=== PATIENT | female | born 1970 | race Caucasian/White ===

== ENCOUNTER 2018-01-25 08:12 | Emergency (ER) | payer OTHER ==
[~2018-01-25] VITALS: Ht 175.3 cm; Wt 108.9 kg
[~2018-01-25 08:12] MED LIST: ALBU90OI INH; ALPR.5 PO; FERSU220EL PO; FLUO10 PO; GABA300 PO; HYDHCL25 PO; IBUP600 PO; IBUP800 PO; MEDR10 PO; Norco 10-325 T1 EACH PO; OXYACE5T PO; PARO10 PO; PRAZ1 PO; Prednisone20 MG PO; Prinivil10 MG PO; QVAR7.3 G1 IH; SERT100 PO; Zithromax250 MG PO; Zofran8 MG PO; Zoloft100 MG PO
[2018-01-25] MEDS ORDERED: Percocet 5-3251 EACH PO (09:39)
[2018-01-25] MEDS ORDERED: NAPR550 PO (09:39)
[2018-01-25] MEDS ORDERED: CEPH500 PO (09:39)
[2018-09-30] MEDS ORDERED: Flovent 44 mc10.6 GM INH (15:59)
[2018-09-30] MEDS ORDERED: ATOR20 PO (16:00)
[2018-09-30] MEDS ORDERED: ONDA4ODT MM (16:01)
[2018-09-30] MEDS ORDERED: MULTIVITAMIN W1 EACH PO (16:01)
[2018-09-30] MEDS ORDERED: Flonase 0.05% N16 GM (16:01)
[2018-09-30] MEDS ORDERED: MEDR10 PO (16:02)
[2018-09-30] MEDS ORDERED: Aspir 8181 MG PO (16:02)
[2018-09-30] MEDS ORDERED: LOSA25 PO (16:02)
[2018-09-30] MEDS ORDERED: Patanol5 ML BOTHEYES (16:03)
[2018-09-30] MEDS ORDERED: ALPR.25 PO (16:04)
[2018-09-30] MEDS ORDERED: Hydrochlorothia25 MG PO (16:05)
[2018-09-30] MEDS ORDERED: SULFATRIM 800-120 ML PO (16:07)
[2018-09-30] MEDS ORDERED: MUPI1NAS (16:08)
[2018-09-30] MEDS ORDERED: Augmentin 875-1 EACH PO (16:13)
[2018-10-03] MEDS ORDERED: SERT100 PO (08:39)
[2018-10-09] MEDS ORDERED: ESTR2 PO (12:59)
[2018-10-09] MEDS ORDERED: IBUP800 PO (13:00)
[2018-10-09] MEDS ORDERED: Percocet 10-321 EACH PO (13:00)
[2018-10-09] MEDS ORDERED: GAVILAX17 GM PO (13:01)
[2018-10-16] MEDS ORDERED: CEPH500 PO (13:16)
[2018-10-16] MEDS ORDERED: Percocet 10-321 EACH PO (13:16)
== END 2018-01-25 10:00 | disposition home or self-care (01) ==
LOC: ER 08:12
DX: N61.0 Mastitis without abscess (principal); J45.909 Unspecified asthma, uncomplicated; F41.9 Anxiety disorder, unspecified; Z79.899 Other long term (current) drug therapy
CPT/HCPCS: 76642; 96372; 99284; J2550

== ENCOUNTER → 2018-11-08 | Outpatient (CLI) | payer OTHER ==
[~2018-11-08] MED LIST changes: +ALPR.25 PO; +ATOR20 PO; +Aspir 8181 MG PO; +Augmentin 875-1 EACH PO; +CEPH500 PO; +ESTR2 PO; +Flonase 0.05% N16 GM; +Flovent 44 mc10.6 GM INH; +GAVILAX17 GM PO; +Hydrochlorothia25 MG PO; +LOSA25 PO; +MULTIVITAMIN W1 EACH PO; +MUPI1NAS; +NAPR550 PO; +ONDA4ODT MM; +Patanol5 ML BOTHEYES; +Percocet 10-321 EACH PO; +Percocet 5-3251 EACH PO; +SULFATRIM 800-120 ML PO
[2018-11-08 13:49] LABS: Bilirubin, Urine Neg (Neg); Blood, Urine 1+ (Neg); Glucose Qualitative, Urine Neg (Neg); Ketones, Urine Neg (Neg); Leukocyte Esterase, Urine 3+ (Neg); Nitrite, Urine Neg (Neg); Protein, Urine 2+ (Neg); Specific Gravity, Urine 1.015 (1.003-1.022); Urobilinogen, Urine NORM (Normal); pH, Urine 6.5 (5.0-8.0)
[2018-11-08 14:10] LABS: Appearance, Urine Clear (Clear); Color, Urine Yellow (P-Yellow)
[2018-11-08 14:11] LABS: Bacteria Mod /hpf; Hyaline Casts 0-2 /lpf (0-2)
[2018-11-08 14:12] LABS: Squamous Epithelial Cells Mod /hpf (Few)
== END | disposition home or self-care (01) ==
LOC: LAB 13:34 → LAB SHORT 13:34
PROVIDERS: Obstetrics & Gynecology
DX: N76.0 Acute vaginitis (principal); R39.9 Unspecified symptoms and signs involving the genitourinary system
CPT/HCPCS: 81001; 87070; 87086; 87205

== ENCOUNTER → 2018-11-20 | Outpatient (CLI) | payer OTHER ==
[2018-11-20 13:45] LABS: Source, Urine Clean Catch
[2018-11-20 18:07] LABS: Appearance, Urine Hazy (Clear); Bilirubin, Urine Neg (Neg); Blood, Urine 1+ (Neg); Color, Urine Yellow (P-Yellow); Glucose Qualitative, Urine Neg (Neg); Ketones, Urine Neg (Neg); Leukocyte Esterase, Urine 1+ (Neg); Nitrite, Urine Pos (Neg); Protein, Urine Neg (Neg); Urobilinogen, Urine NORM (Normal)
[2018-11-20 18:38] LABS: Bacteria Many /hpf; Squamous Epithelial Cells Many /hpf (Few)
== END | disposition home or self-care (01) ==
LOC: LAB 11:21 → LAB SHORT 11:21
PROVIDERS: Obstetrics & Gynecology
DX: N76.0 Acute vaginitis (principal); R39.9 Unspecified symptoms and signs involving the genitourinary system
CPT/HCPCS: 81001; 87070; 87086; 87205

== ENCOUNTER → 2018-12-11 | Outpatient (CLI) | payer OTHER ==
[2018-12-11 16:58] LABS: Source, Urine Clean Catch
[2018-12-11 18:10] LABS: Bilirubin, Urine Neg (Neg); Blood, Urine 1+ (Neg); Glucose Qualitative, Urine Neg (Neg); Ketones, Urine Neg (Neg); Leukocyte Esterase, Urine Neg (Neg); Nitrite, Urine Neg (Neg); Protein, Urine Neg (Neg); Urobilinogen, Urine NORM (Normal)
[2018-12-11 18:50] LABS: Appearance, Urine Hazy (Clear); Color, Urine Yellow (P-Yellow)
[2018-12-11 18:51] LABS: Bacteria Many /hpf; Red Blood Cells, Urine 0-2 /hpf (0-2); Squamous Epithelial Cells Many /hpf (Few); White Blood Cells, Urine 0-2 /hpf (0-5)
== END | disposition home or self-care (01) ==
LOC: LAB 16:56 → LAB SHORT 16:56
PROVIDERS: Obstetrics & Gynecology
DX: R35.0 Frequency of micturition (principal)
CPT/HCPCS: 81001; 87086

== ENCOUNTER 2019-05-27 09:25 | Emergency (ER) | payer OTHER ==
[~2019-05-27] VITALS: Ht 170.2 cm; Wt 108.9 kg
[2019-05-27] MEDS ORDERED: CEPH500 PO (10:06)
[2019-05-27] MEDS ORDERED: ONDA4ODT MM (10:58)
== END 2019-05-27 10:11 | disposition home or self-care (01) ==
LOC: ER 09:25
DX: L03.113 Cellulitis of right upper limb (principal); Z79.899 Other long term (current) drug therapy; J45.909 Unspecified asthma, uncomplicated; F41.9 Anxiety disorder, unspecified; I10 Essential (primary) hypertension; E78.00 Pure hypercholesterolemia, unspecified; Z87.891 Personal history of nicotine dependence
CPT/HCPCS: 99282

== ENCOUNTER 2020-07-19 11:37 | Emergency (ER) | payer OTHER ==
[~2020-07-19] VITALS: Ht 175.3 cm; Wt 108.9 kg
[~2020-07-19 11:37] MED LIST changes: +ALBU3IS INH; +ALBU90OI; +CONEST1.25 PO; +CYCL10 PO; +EFFEXOR XR150 MG PO; +EPINEPHRIN0.3 MG/0.1; +EPIPEN 2-P0.3 MG/0.1 IM; -ESTR2 PO; +ESTRADIOL2 MG PO; +GABA800 PO; +HYDPAM25 PO; +HYDROXYZINE PAM25 MG PO; +METO50 PO; +Norco 5-325 Ta1 EACH PO; +Prometrium200 MG PO; +VENL150ER PO
[2020-07-19] MEDS ORDERED: NAPR500 PO (12:18)
[2020-07-19] MEDS ORDERED: ALOCANE EMERGEN75 ML TOP (12:18)
== END 2020-07-19 12:22 | disposition home or self-care (01) ==
LOC: ER 11:37
DX: T22.112A Burn of first degree of left forearm, initial encounter (principal); J45.909 Unspecified asthma, uncomplicated; F41.9 Anxiety disorder, unspecified; Z87.891 Personal history of nicotine dependence; Z79.3 Long term (current) use of hormonal contraceptives; Z79.899 Other long term (current) drug therapy; X10.0XXA Contact with hot drinks, initial encounter
CPT/HCPCS: 99283

== ENCOUNTER 2020-09-16 12:27 | Day surgery (SDC) | payer OTHER ==
[~2020-09-16] VITALS: Ht 170.2 cm; Wt 117.7 kg
[~2020-09-16 12:27] MED LIST changes: +ALBU8HFA2 INH; +ALOCANE EMERGEN75 ML TOP; +CLON.5 PO; +HYDCHL25 PO; +NAPR500 PO
--- NOTE | 2020-09-16 13:31 | NUR ---
09/16/20 1330 Alfredo Arzola 1ST IV ATTEMPT IN LEFT HAND VEIN BLEW, 2ND IV ATTEMPT IN LEFT HAND VEIN BLEW, 3RD AND 4TH IV ATTEMPT IN RIGHT FOREARM VEIN ALEEED-[facility]
--- NOTE | 2020-09-16 16:02 | NUR ---
09/16/20 1602 Theresa Small PATIENT C/O PAIN IN ABDOMEN THAT WAS CRAMPING IN NATURE THAT SHE RATES 05/28. PATIENT WAS ABLE TO PASS AIR AND VERBALIZED THAT SHE WAS FEELING BETTER WHEN TIME FOR DISCHARGE. I EMPHASIZED TO THE PATIENT THAT IF THE PAIN GOT WORSE OR DID NOT GO AWAY TO BE SURE AND CALL DR ANDERS. PATIENT STATED IT WAS FEELING BETTER BUT SHE AND HER DAUGHTER VERBALIZED UNDERSTANDING. PATIENT WAS DISCHARGED IN STABLE CONDITION
== END 2020-09-16 15:50 | disposition home or self-care (01) ==
LOC: ORSCSDS 12:27
PROVIDERS: Internal Medicine Gastroenterology
PROC: 0DBM8ZX Excision of Descending Colon, Via Natural or Artificial Opening Endoscopic, Diagnostic (ICD-10-PCS; principal; 2020-09-16 14:30)
PROC: 0DBN8ZX Excision of Sigmoid Colon, Via Natural or Artificial Opening Endoscopic, Diagnostic (ICD-10-PCS; principal; 2020-09-16 14:30)
DX: Z12.11 Encounter for screening for malignant neoplasm of colon (principal); D12.4 Benign neoplasm of descending colon; D12.5 Benign neoplasm of sigmoid colon; K57.30 Diverticulosis of large intestine without perforation or abscess without bleeding; K64.8 Other hemorrhoids; I10 Essential (primary) hypertension; J45.909 Unspecified asthma, uncomplicated; E66.01 Morbid (severe) obesity due to excess calories
CPT/HCPCS: 88305; J2704; J7120

== ENCOUNTER → 2021-02-28 | Outpatient (CLI) | payer OTHER ==
[2021-02-28 15:09] LABS: BASOPHILS ABSOLUTE AUTO 0.05 K/mm3 (0.00-0.23); BASOPHILS PERCENT AUTO 1 % (0-2); EOSINOPHILS ABSOLUTE AUTO 0.67 K/mm3 (0.00-0.68); EOSINOPHILS PERCENT AUTO 7 % (0-6); Hematocrit 43.3 % (33.0-51.0); Hemoglobin 14.2 g/dL (11.5-16.0); IMMATURE GRAN ABSOLUTE AUTO 0.04 K/mm3 (0.00-0.10); IMMATURE GRAN PERCENT AUTO 0 % (0-1); LYMPHOCYTES ABSOLUTE AUTO 1.63 K/mm3 (0.84-5.20); LYMPHOCYTES PERCENT AUTO 18 % (21-46); MONOCYTES ABSOLUTE AUTO 0.51 K/mm3 (0.16-1.47); MONOCYTES PERCENT AUTO 6 % (4-13); Mean Corpuscular HGB 28.7 pg (26.0-34.0); Mean Corpuscular HGB Conc 32.8 g/dL (31.5-36.5); Mean Corpuscular Volume 88 fL (80-100); Mean Platelet Volume 9.5 fL (9.1-12.4); NEUTROPHILS ABSOLUTE AUTO 6.41 K/mm3 (1.96-9.15); NEUTROPHILS PERCENT AUTO 69 % (41-73); Platelet Count 454 K/mm3 (150-400); RDW Coefficient Variation 13.9 % (11.7-14.2); RDW Standard Deviation 44.5 fL (35.1-46.3); Red Blood Cell Count 4.94 M/mm3 (3.80-5.20); White Blood Cell Count 9.31 K/mm3 (4.00-11.30)
[2021-02-28 15:21] LABS: Anion Gap 11 mmol/L (6-16); Blood Urea Nitrogen 9 mg/dL (8-24); CO2, Blood 28 mmol/L (21-32); Calcium, Blood 9.4 mg/dL (8.5-10.1); Chloride, Blood 99 mmol/L (98-108); Creatinine, Blood 1.13 mg/dL (0.40-1.00); Glomerular Filtration Rate 51 (60-); Glucose, Blood 114 mg/dL (70-99); Sodium, Blood 138 mmol/L (136-145); Troponin I <0.017 ng/mL (0.000-0.040)
== END | disposition home or self-care (01) ==
LOC: LAB SHORT 15:03 → LAB EV 15:03
PROVIDERS: Chiropractor
DX: R06.00 Dyspnea, unspecified (principal); R07.89 Other chest pain
CPT/HCPCS: 80048; 83880; 84484; 85025; 85379

== ENCOUNTER 2021-08-12 21:31 | Emergency (ER) | payer OTHER ==
[~2021-08-12] VITALS: Ht 170.2 cm; Wt 117.9 kg
== END 2021-08-12 23:46 | disposition home or self-care (01) ==
LOC: ER 21:31
DX: S90.32XA Contusion of left foot, initial encounter (principal); J45.909 Unspecified asthma, uncomplicated; Z79.899 Other long term (current) drug therapy; Z87.891 Personal history of nicotine dependence; W22.8XXA Striking against or struck by other objects, initial encounter
CPT/HCPCS: 73630; 96372; 99283-25; J1885

== ENCOUNTER 2022-03-01 03:10 | Emergency (ER) | payer OTHER ==
[~2022-03-01] VITALS: Ht 170.2 cm; Wt 113.4 kg
[2022-03-01 04:28] LABS: BASOPHILS ABSOLUTE AUTO 0.06 K/mm3 (0.00-0.23); BASOPHILS PERCENT AUTO 1 % (0-2); EOSINOPHILS ABSOLUTE AUTO 0.32 K/mm3 (0.00-0.68); EOSINOPHILS PERCENT AUTO 4 % (0-6); Hematocrit 43.4 % (33.0-51.0); Hemoglobin 13.8 g/dL (11.5-16.0); IMMATURE GRAN ABSOLUTE AUTO 0.06 K/mm3 (0.00-0.10); IMMATURE GRAN PERCENT AUTO 1 % (0-1); LYMPHOCYTES ABSOLUTE AUTO 2.51 K/mm3 (0.84-5.20); LYMPHOCYTES PERCENT AUTO 28 % (21-46); MONOCYTES ABSOLUTE AUTO 0.61 K/mm3 (0.16-1.47); MONOCYTES PERCENT AUTO 7 % (4-13); Mean Corpuscular HGB 28.3 pg (26.0-34.0); Mean Corpuscular HGB Conc 31.8 g/dL (31.5-36.5); Mean Corpuscular Volume 89 fL (80-100); Mean Platelet Volume 9.9 fL (9.1-12.4); NEUTROPHILS ABSOLUTE AUTO 5.34 K/mm3 (1.96-9.15); NEUTROPHILS PERCENT AUTO 60 % (41-73); Platelet Count 438 K/mm3 (150-400); RDW Coefficient Variation 14.6 % (11.7-14.2); RDW Standard Deviation 48.5 fL (35.1-46.3); Red Blood Cell Count 4.87 M/mm3 (3.80-5.20)
[2022-03-01 04:39] LABS: Albumin, Blood 3.8 g/dL (3.4-5.0); Bilirubin, Total 0.2 mg/dL (0.1-1.0); Bun/Creatinine Ratio 12.3 (12.0-20.0); Calcium, Blood 9.1 mg/dL (8.5-10.1); Creatinine, Blood 1.22 mg/dL (0.40-1.00); Globulin, Blood 3.9 g/dL (2.2-4.0); Potassium, Blood 3.6 mmol/L (3.5-5.5); Total Protein, Blood 7.7 g/dL (6.4-8.2)
[2022-03-01 05:21] LABS: Influenza A, PCR NEGATIVE (NEGATIVE); Influenza B, PCR NEGATIVE (NEGATIVE); Resp Syncytial Virus, PCR NEGATIVE (NEGATIVE); SARS-Cov-2 (COVID-19) PCR, MMC NEGATIVE (NEGATIVE)
[2022-03-01] MEDS ORDERED: ALBU90OI INH (05:44)
[2022-03-01] MEDS ORDERED: IBU600 MG PO (05:44)
== END 2022-03-01 07:53 | disposition home or self-care (01) ==
LOC: ER 03:10
PROVIDERS: Emergency Medicine
DX: B34.9 Viral infection, unspecified (principal); Z20.822 Contact with and (suspected) exposure to COVID-19; J44.9 Chronic obstructive pulmonary disease, unspecified; Z79.899 Other long term (current) drug therapy; Z87.891 Personal history of nicotine dependence
CPT/HCPCS: 0241U; 71045; 80053; 83605; 84484; 85025; 86308; 93005; 93010; 94640; 94664; 96374; 99283-25; J1885; J7030

== ENCOUNTER 2022-03-01 11:31 | Emergency (ER) | payer OTHER ==
[~2022-03-01] VITALS: Ht 170.2 cm; Wt 52.0 kg
[~2022-03-01 11:31] MED LIST changes: +IBU600 MG PO
== END 2022-03-01 13:54 | disposition home or self-care (01) ==
LOC: ER 11:31
DX: R91.1 Solitary pulmonary nodule (principal); Z87.891 Personal history of nicotine dependence
CPT/HCPCS: 71260; 99282-25; Q9967

== ENCOUNTER → 2022-04-10 | Outpatient (CLI) | payer OTHER | END | disposition home or self-care (01) | LOC: LAB SHORT 17:40 | DX: G62.9 Polyneuropathy, unspecified (principal) | CPT/HCPCS: 83036 ==

== ENCOUNTER → 2022-11-08 | Outpatient (CLI) | payer OTHER ==
[2022-11-08 14:40] LABS: Source, Urine Clean Catch
[2022-11-08 17:31] LABS: Appearance, Urine Hazy (Clear); Bilirubin, Urine Neg (Neg); Blood, Urine 1+ (Neg); Color, Urine Yellow (P-Yellow); Glucose Qualitative, Urine Neg (Neg); Ketones, Urine Neg (Neg); Leukocyte Esterase, Urine Neg (Neg); Nitrite, Urine Neg (Neg); Protein, Urine 1+ (Neg); Specific Gravity, Urine 1.015 (1.003-1.022); Urobilinogen, Urine NORM (Normal)
[2022-11-08 17:47] LABS: Bacteria Many /hpf; Red Blood Cells, Urine 0-2 /hpf (0-2); Squamous Epithelial Cells Mod /hpf (Few)
== END | disposition home or self-care (01) ==
LOC: LAB SHORT 14:39 → LAB 14:39
PROVIDERS: Obstetrics & Gynecology
DX: N39.3 Stress incontinence (female) (male) (principal)
CPT/HCPCS: 81001; 87086

== ENCOUNTER 2022-12-08 10:00 | Day surgery (SDC) | payer OTHER ==
[~2022-12-08] VITALS: Ht 175.3 cm; Wt 111.6 kg
[2022-12-08] MEDS ORDERED: HYDCHL25 PO (10:36)
--- NOTE | 2022-12-08 10:59 | NUR ---
12/08/22 Arabella Sher 20 GAUGE LUKAS BLOCK PLACED TO L HAND PER DR ACOSTA, FLUSHED WITH 10 CC NORMAL SALINE
[2022-12-12] MEDS ORDERED: CLON.5 PO (10:02)
[2022-12-12] MEDS ORDERED: FLUT1DIS5 INH (10:03)
[2022-12-12] MEDS ORDERED: HYDCHL25 PO (10:04)
[2022-12-12] MEDS ORDERED: HYDPAM25 PO (10:05)
== END 2022-12-08 13:45 | disposition home or self-care (01) ==
LOC: ORSCSDS 10:00
PROVIDERS: Orthopaedic Surgery
PROC: 01N50ZZ Release Median Nerve, Open Approach (ICD-10-PCS; principal; 2022-12-08 11:45)
DX: G56.02 Carpal tunnel syndrome, left upper limb (principal); I10 Essential (primary) hypertension; J45.909 Unspecified asthma, uncomplicated; G47.33 Obstructive sleep apnea (adult) (pediatric); F32.A Depression, unspecified; E66.9 Obesity, unspecified; Z68.36 Body mass index [BMI] 36.0-36.9, adult; Z79.899 Other long term (current) drug therapy
CPT/HCPCS: A9270; J0690; J1885; J2250; J2405; J2704; J3010; J7120

== ENCOUNTER 2022-12-20 06:16 | Day surgery (SDC) | payer OTHER ==
[~2022-12-20] VITALS: Ht 175.3 cm; Wt 111.1 kg
[~2022-12-20 06:16] MED LIST changes: +FLUT1DIS5 INH
--- NOTE | 2022-12-20 07:17 | NUR ---
Ambulatory in Day Surgery. History, Chart, Medications and Allergies reviewed before start of procedure. Lungs clear T/O to Auscultation. Patient confirms NPO status and agrees with scheduled surgery. Pre-Op teaching done. Pt verbalizes understanding. Patient States Post-Procedure ride home has been arranged WITH [facility].
--- NOTE | 2022-12-20 10:09 | NUR ---
Patient up to Ambulate independently. Gait steady. Discharge instructions reviewed with patient. Patient verbalizes understanding. Copy given to patient to take home. Discharged via wheelchair to private car for ride home.
== END 2022-12-20 23:33 | disposition home or self-care (01) ==
LOC: ORSCMMR 06:16 → ORD 07:30 → ORSCMMR 23:33
PROVIDERS: Obstetrics & Gynecology
PROC: 0TSD0ZZ Reposition Urethra, Open Approach (ICD-10-PCS; principal; 2022-12-20 07:30)
PROC: 0JQC0ZZ Repair Pelvic Region Subcutaneous Tissue and Fascia, Open Approach (ICD-10-PCS; principal; 2022-12-20 07:30)
DX: N39.3 Stress incontinence (female) (male) (principal); N81.10 Cystocele, unspecified; I10 Essential (primary) hypertension; J44.9 Chronic obstructive pulmonary disease, unspecified; Z79.899 Other long term (current) drug therapy; E66.9 Obesity, unspecified; Z68.36 Body mass index [BMI] 36.0-36.9, adult
CPT/HCPCS: J1100; J1885; J1956; J2250; J2405; J2704; J3010; J7120

== ENCOUNTER → 2023-01-03 | Outpatient (CLI) | payer OTHER ==
[2023-01-03 14:52] LABS: Candida species (DNA Probe) Positive (NEGATIVE); G. vaginalis (DNA Probe) Positive (NEGATIVE); T. vaginalis (DNA Probe) Negative (NEGATIVE)
== END | disposition home or self-care (01) ==
LOC: LAB 11:50 → LAB SHORT 11:50
PROVIDERS: Obstetrics & Gynecology
DX: N89.8 Other specified noninflammatory disorders of vagina (principal)
CPT/HCPCS: 87480; 87510; 87660

== ENCOUNTER 2023-03-02 10:48 | Day surgery (SDC) | payer OTHER ==
[~2023-03-02] VITALS: Ht 172.7 cm; Wt 110.1 kg
[2023-03-02] MEDS ORDERED: CONEST1.25 PO (11:28)
--- NOTE | 2023-03-02 12:57 | NUR ---
03/02/23 1257 Devan Maier BLOCK COMPLETE IN OR BY DR MOREL, SITE CHECK COMPLETE, PT TOW, VSS.
[2023-03-02 13:23] VITALS: BP 140/86
--- NOTE | 2023-03-02 14:31 | NUR ---
03/02/23 1431 Jasson Shaw PT REPORTED NO PAIN UPON ARRIVAL IN STEP DOWN. AFTER IV REMOVED , SHE REPORTED 8/10 PAIN WITH FLACC SCALE 0-2/10. SHE WAS MEDICATED WITH PERCOCETT, PER DR. ACOSTA ORDERS. DURING TIME IN STEP DOWN PT WAS FREQUENTLY SMILING, LAUGHING, AND MOVING SURGICAL ARM. SHE WAS ABLE TO DRESS WITHOUT DIFFICULTY. PT APPEARED CALM AND RELAXED AT TIME OF DISCHARGE. SHE EXPRESSED EAGERNESS TO RETURN HOME. PT DENIED NAUSEA.
== END 2023-03-02 14:15 | disposition home or self-care (01) ==
LOC: ORSCSDS 10:48
PROVIDERS: Orthopaedic Surgery
PROC: 01N50ZZ Release Median Nerve, Open Approach (ICD-10-PCS; principal; 2023-03-02 12:30)
DX: G56.01 Carpal tunnel syndrome, right upper limb (principal); I10 Essential (primary) hypertension; J44.9 Chronic obstructive pulmonary disease, unspecified; Z87.891 Personal history of nicotine dependence; Z79.899 Other long term (current) drug therapy; F32.A Depression, unspecified; E66.01 Morbid (severe) obesity due to excess calories; Z68.36 Body mass index [BMI] 36.0-36.9, adult
CPT/HCPCS: A9270; J0690; J1885; J2001; J2250

== ENCOUNTER 2025-08-13 12:51 | Inpatient (IN) | payer OTHER ==
[~2025-08-13] VITALS: Ht 172.7 cm; Wt 105.1 kg
[~2025-08-13 12:51] MED LIST changes: -AMLODIPINE BESY10 MG PO; -CAPLYTA42 MG PO; -CEFD300 PO; +Enoxaparin 30 MG/0.3 ML SYR SC SCH; -KLOR-CON 1010 ME9 PO; -LYLLANA TD; -Oxybutynin Chlo10 MG PO; -PREGABALIN100 MG PO; -ROSUVASTATIN CA40 MG PO; -SPIRONOLACTONE50 MG PO; -VENLAFAXINE HC225 MG PO
[2025-08-13] MEDS ORDERED: NS 1,000 ML IV SCH ×2 (13:05→18:05)
[2025-08-13] MEDS ORDERED: CefTRIAXone Sodium 1,000 MG in NS 100 ML IV ONE (18:05)
[2025-08-13] MEDS ORDERED: FentaNYL Citrate 50 MCG/ML 2 ML Injection IV PRN (18:05)
[2025-08-13] MEDS ORDERED: Ondansetron HCl 2 MG / ML 2ML Vial IV ONE (18:05)
[2025-08-13] MEDS ORDERED: Oxybutynin Chlo10 MG PO (18:44)
[2025-08-13] MEDS ORDERED: AMLODIPINE BESY10 MG PO (18:44)
[2025-08-13] MEDS ORDERED: CAPLYTA42 MG PO (18:44)
[2025-08-13] MEDS ORDERED: HYDCHL25 PO (18:45)
[2025-08-13] MEDS ORDERED: KLOR-CON 1010 ME9 PO (18:45)
[2025-08-13] MEDS ORDERED: VENLAFAXINE HC225 MG PO (18:45)
[2025-08-13] MEDS ORDERED: CYCL10 PO (18:45)
[2025-08-13] MEDS ORDERED: ROSUVASTATIN CA40 MG PO (18:46)
[2025-08-13] MEDS ORDERED: SPIRONOLACTONE50 MG PO (18:46)
[2025-08-13] MEDS ORDERED: PREGABALIN100 MG PO (18:46)
[2025-08-13] MEDS ORDERED: LYLLANA TD (18:46)
[2025-08-13 20:00] LABS: Source, Urine Clean Catch
[2025-08-13 20:02] LABS: Bilirubin, Urine Neg (Neg); Glucose Qualitative, Urine Neg (Neg); Ketones, Urine Neg (Neg); Leukocyte Esterase, Urine Neg (Neg); Protein, Urine 2+ (Neg); Specific Gravity, Urine 1.005 (1.003-1.022); Urobilinogen, Urine NORM (Normal)
[2025-08-13 20:08] LABS: Color, Urine Pale Yellow (P-Yellow)
[2025-08-13 20:10] LABS: Red Blood Cells, Urine 0-2 /hpf (0-2)
[2025-08-13] MEDS ORDERED: Ondansetron HCl 2 MG / ML 2ML Vial IV PRN (23:20)
[2025-08-13] MEDS ORDERED: FLU VACC TS2025-26(6MOS UP)/PF 45 MCG/0.5 ML SYRINGE IM ONE (23:20)
[2025-08-13] MEDS ORDERED: NS 1,000 ML IV ONE (23:20)
[2025-08-13] MEDS ORDERED: Enoxaparin 40 MG/0.4 ML SYR SC SCH (23:31)
[2025-08-14] VITALS (7 sets, daily range): BP systolic 126–139; BP diastolic 57–90
[2025-08-14] MEDS ORDERED: Misc. Capsule PO SCH ×2 (09:00→21:00)
[2025-08-14 09:20] LABS: BASOPHILS ABSOLUTE AUTO 0.09 K/mm3 (0.00-0.23); BASOPHILS PERCENT AUTO 1 % (0-2); EOSINOPHILS ABSOLUTE AUTO 0.50 K/mm3 (0.00-0.68); EOSINOPHILS PERCENT AUTO 5 % (0-6); IMMATURE GRAN ABSOLUTE AUTO 0.30 K/mm3 (0.00-0.10); IMMATURE GRAN PERCENT AUTO 3 % (0-1); LYMPHOCYTES ABSOLUTE AUTO 2.48 K/mm3 (0.84-5.20); LYMPHOCYTES PERCENT AUTO 23 % (21-46); MONOCYTES ABSOLUTE AUTO 0.39 K/mm3 (0.16-1.47); MONOCYTES PERCENT AUTO 4 % (4-13); NEUTROPHILS ABSOLUTE AUTO 7.13 K/mm3 (1.96-9.15); NEUTROPHILS PERCENT AUTO 65 % (41-73)
[2025-08-14 09:22] LABS: NRBC ABSOLUTE 0.00 K/mm3 (0.00-0.02); NRBC Auto 0.0 /100 WBC (0.0-0.2)
[2025-08-14 09:26] LABS: Hematocrit 40.7 % (33.0-51.0); Hemoglobin 13.6 g/dL (11.5-16.0); Mean Corpuscular HGB Conc 33.4 g/dL (31.5-36.5); Mean Corpuscular Volume 86 fL (80-100); Platelet Count 548 K/mm3 (150-400); RDW Coefficient Variation 16.5 % (11.7-14.2); RDW Standard Deviation 52.4 fL (35.1-46.3)
[2025-08-14 09:50] LABS: Alanine Aminotransfer (ALT/SGP 105.0 U/L (12-78); Albumin, Blood 3.0 g/dL (3.4-5.0); Albumin/Globulin Ratio 0.6 (0.8-1.8); Anion Gap 9.0 mmol/L (3-11); Aspartate Aminotrans (AST/SGOT 54.0 U/L (12-37); Bilirubin, Total 0.2 mg/dL (0.1-1.0); Blood Urea Nitrogen 11.0 mg/dL (8-24); CO2, Blood 26.0 mmol/L (21-32); Calcium, Blood 8.8 mg/dL (8.5-10.1); Chloride, Blood 103.0 mmol/L (98-108); Creatinine, Blood 1.57 mg/dL (0.40-1.00); Globulin, Blood 5.1 g/dL (2.2-4.0); Glucose, Blood 124.0 mg/dL (70-99); Potassium, Blood 4.1 mmol/L (3.5-5.5); Sodium, Blood 134.0 mmol/L (136-145); Total Protein, Blood 8.1 g/dL (6.4-8.2)
[2025-08-14] MEDS ORDERED: CefTRIAXone Sodium 1,000 MG in NS 100 ML IV SCH (18:00)
--- NOTE | 2025-08-14 19:15 | NUR ---
SHIFT SUMMARY PT IS A/OX4. INDEPENDENT IN THE ROOM. NO ACUTE CHANGES THROUGHOUT THIS SHIFT. RECIEVING IV ANTIBIOTICS PER JAN. VERY POOR APPETITE, ENCOURAGING INTAKE. PT IS PLEASANT AND COOPERATIVE WITH CARE AND CALLS APPROPRIATELY USING THE CALL LIGHT.
[2025-08-15] MEDS ORDERED: Albuterol HFA200 ACT/6.7 GM INH INH PRN (03:00)
[2025-08-15 03:11] VITALS: BP 127/71
--- NOTE | 2025-08-15 03:38 | NUR ---
SHIFT SUMMARY: AOX4. SBA TO TOILET. TELEMETRY MONITORING, NSR WITH BBB IN 90s. ENCOURAGED PO INTAKE THIS SHIFT, GAVE PT ENSURE WELL. CALL LIGHT IS WITHIN REACH. BED IS LOW AND LOCKED.
[2025-08-15 05:24] LABS: Hematocrit 38.0 % (33.0-51.0); Hemoglobin 12.9 g/dL (11.5-16.0); Mean Corpuscular HGB Conc 33.9 g/dL (31.5-36.5); Mean Corpuscular Volume 87 fL (80-100); NRBC ABSOLUTE 0.00 K/mm3 (0.00-0.02); NRBC Auto 0.0 /100 WBC (0.0-0.2); Platelet Count 584 K/mm3 (150-400); RDW Coefficient Variation 16.6 % (11.7-14.2); RDW Standard Deviation 52.2 fL (35.1-46.3)
[2025-08-15 05:54] LABS: Alanine Aminotransfer (ALT/SGP 75.0 U/L (12-78); Albumin, Blood 2.9 g/dL (3.4-5.0); Albumin/Globulin Ratio 0.6 (0.8-1.8); Anion Gap 10.0 mmol/L (3-11); Aspartate Aminotrans (AST/SGOT 31.0 U/L (12-37); Bilirubin, Total 0.3 mg/dL (0.1-1.0); Blood Urea Nitrogen 10.0 mg/dL (8-24); CO2, Blood 27.0 mmol/L (21-32); Calcium, Blood 10.0 mg/dL (8.5-10.1); Chloride, Blood 103.0 mmol/L (98-108); Creatinine, Blood 1.57 mg/dL (0.40-1.00); Globulin, Blood 4.6 g/dL (2.2-4.0); Glucose, Blood 92.0 mg/dL (70-99); Potassium, Blood 4.0 mmol/L (3.5-5.5); Sodium, Blood 136.0 mmol/L (136-145); Total Protein, Blood 7.5 g/dL (6.4-8.2)
[2025-08-15 07:36] VITALS: BP 145/85
[2025-08-15 11:28] VITALS: BP 147/86
[2025-08-15] MEDS ORDERED: CEFD300 PO (12:31)
--- NOTE | 2025-08-15 14:05 | NUR ---
DISCHARGE SUMMARY PATIENT DISCHARGED HOME WITH TO DRIVE. IV REMOVED WITHOUT COMPLICATION. MEDS FAXED TO [facility]. DISCHARGE PACKET GIVEN AND REVIEWED, QUESTIONS ANSWERED, VERBALIZED UNDERSTANDING. INSTRUCTED TO FOLLOW UP WITH PCP FOR TEST RESULTS. HOME MED, [facility], RETURNED.
[2025-08-16] MEDS ORDERED: Misc. Topical TOP SCH (09:00)
[2025-08-17 15:46] LABS: HEPATITIS A ANTIBODY, IGM Negative (Negative); HEPATITIS C AB CIA INTERP Negative (Negative); HEPATITIS C ANTIBODY CIA INDEX 0.02 IV
== END 2025-08-15 13:20 | disposition home or self-care (01) | DRG 683 ==
LOC: ER 12:51 → MEDS 12:52
PROVIDERS: Internal Medicine; Student in an Organized Health Care Education/Training Program; ADMIT Internal Medicine
DX: N17.9 Acute kidney failure, unspecified (principal); N39.0 Urinary tract infection, site not specified; J45.909 Unspecified asthma, uncomplicated; F41.9 Anxiety disorder, unspecified; D64.9 Anemia, unspecified; E83.41 Hypermagnesemia; R74.01 Elevation of levels of liver transaminase levels; I10 Essential (primary) hypertension; E78.5 Hyperlipidemia, unspecified; G62.9 Polyneuropathy, unspecified; Z87.891 Personal history of nicotine dependence; Z98.51 Tubal ligation status; Z79.899 Other long term (current) drug therapy; R53.83 Other fatigue
CPT/HCPCS: 36415; 74177; 80053; 81001; 83690; 83735; 83880; 84484; 85025; 85027; 93005; 93010; 96361; 96365; 96375; 96376; 99285-25; A9270; G0378; J0696; J2405; J3010; J7030; Q9967

== ENCOUNTER → 2025-08-13 | Outpatient (CLI) | payer OTHER ==
[~2025-08-13] MED LIST changes: +AMLODIPINE BESY10 MG PO; +CAPLYTA42 MG PO; +CEFD300 PO; +KLOR-CON 1010 ME9 PO; +LYLLANA TD; +Oxybutynin Chlo10 MG PO; +PREGABALIN100 MG PO; +ROSUVASTATIN CA40 MG PO; +SPIRONOLACTONE50 MG PO; +Ultram50 MG PO; +VENLAFAXINE HC225 MG PO
[2025-08-13 11:46] LABS: BASOPHILS ABSOLUTE AUTO 0.08 K/mm3 (0.00-0.23); BASOPHILS PERCENT AUTO 1 % (0-2); EOSINOPHILS ABSOLUTE AUTO 0.54 K/mm3 (0.00-0.68); EOSINOPHILS PERCENT AUTO 5 % (0-6); Hematocrit 41.1 % (33.0-51.0); Hemoglobin 13.7 g/dL (11.5-16.0); IMMATURE GRAN ABSOLUTE AUTO 0.35 K/mm3 (0.00-0.10); IMMATURE GRAN PERCENT AUTO 3 % (0-1); LYMPHOCYTES ABSOLUTE AUTO 1.86 K/mm3 (0.84-5.20); LYMPHOCYTES PERCENT AUTO 16 % (21-46); MONOCYTES ABSOLUTE AUTO 0.72 K/mm3 (0.16-1.47); MONOCYTES PERCENT AUTO 6 % (4-13); Mean Corpuscular HGB Conc 33.3 g/dL (31.5-36.5); Mean Corpuscular Volume 86 fL (80-100); NEUTROPHILS ABSOLUTE AUTO 8.05 K/mm3 (1.96-9.15); NEUTROPHILS PERCENT AUTO 69 % (41-73); NRBC ABSOLUTE 0.00 K/mm3 (0.00-0.02); NRBC Auto 0.0 /100 WBC (0.0-0.2); Platelet Count 571 K/mm3 (150-400); RDW Coefficient Variation 16.3 % (11.7-14.2); RDW Standard Deviation 51.1 fL (35.1-46.3)
[2025-08-13 11:55] LABS: Alanine Aminotransfer (ALT/SGP 132.0 U/L (12-78); Albumin, Blood 3.0 g/dL (3.4-5.0); Albumin/Globulin Ratio 0.5 (0.8-1.8); Anion Gap 15.0 mmol/L (3-11); Aspartate Aminotrans (AST/SGOT 68.0 U/L (12-37); Bilirubin, Total 0.3 mg/dL (0.1-1.0); Blood Urea Nitrogen 13.0 mg/dL (8-24); CO2, Blood 31.0 mmol/L (21-32); Calcium, Blood 10.0 mg/dL (8.5-10.1); Chloride, Blood 93.0 mmol/L (98-108); Creatinine, Blood 2.14 mg/dL (0.40-1.00); Globulin, Blood 5.6 g/dL (2.2-4.0); Glucose, Blood 101.0 mg/dL (70-99); Magnesium, Blood 2.9 mg/dL (1.6-2.4); Potassium, Blood 3.7 mmol/L (3.5-5.5); Sodium, Blood 135.0 mmol/L (136-145); Total Protein, Blood 8.6 g/dL (6.4-8.2)
== END ==
LOC: LAB 11:41 → LAB SHORT 11:41
PROVIDERS: Physician Assistant
DX: R53.83 Other fatigue (principal)
CPT/HCPCS: 80053; 83735; 85025